=== PATIENT | male | born 1995 | race Caucasian/White ===

== ENCOUNTER 2021-07-30 12:54 | Emergency (ER) | payer OTHER ==
[2021-07-30 13:23] LABS: BASOPHILS # (AUTO) 0.1 10^3/uL (0.0-0.1); EOSINOPHILS # (AUTO) 0.1 10^3/uL (0.0-0.7); EOSINOPHILS % (AUTO) 1.1 %; HCT - HEMATOCRIT 46.2 % (42.0-52.0); HGB - HEMOGLOBIN 16.4 g/dL (14.0-18.0); LYMPHOCYTES # (AUTO) 1.7 10^3/uL (1.5-3.5); LYMPHOCYTES % (AUTO) 21.2 %; MEAN CORPUSCULAR HEMOGLOBIN 32.1 pg (27.0-31.0); MEAN CORPUSCULAR HGB CONC 35.5 g/dL (32.0-36.0); MEAN CORPUSCULAR VOLUME 90.4 fL (80.0-94.0); MEAN PLATELET VOLUME 9.5 fL (7.4-11.4); MONOCYTES # (AUTO) 0.5 10^3/uL (0.0-1.0); MONOCYTES % (AUTO) 6.6 %; NEUTROPHILS # (AUTO) 5.5 10^3/uL (1.5-6.6); PLT - PLATELET COUNT 280 10^3/uL (130-450); RED BLOOD COUNT 5.11 10^6/uL (4.70-6.10); RED CELL DISTRIBUTION WIDTH 11.2 % (12.0-15.0); WHITE BLOOD COUNT 7.9 x10^3/uL (4.8-10.8)
--- NOTE | 2021-07-30 13:35 | XRAY Report ---
PROCEDURE: Chest 1 View X-Ray INDICATIONS: Chest pain TECHNIQUE: One view of the chest was acquired. COMPARISON: None FINDINGS: Surgical changes and devices: None. Lungs and pleura: No pleural effusions or pneumothorax. Lungs are clear. Mediastinum: Mediastinal contours appear normal. Heart size is normal. Bones and chest wall: No suspicious bony lesions. Overlying soft tissues appear unremarkable. IMPRESSION: Normal examination. Reviewed by: Yin Lindsay MD, PhD on 07/30/2021 1:34 PM [facility] Approved by: Yin Lindsay MD, PhD on 07/30/2021 1:34 PM [facility] Station ID: [id number]
[2021-07-30 13:42] LABS: ALBUMIN 5.2 g/dL (3.2-5.5); ALBUMIN/GLOBULIN RATIO 1.5 (1.0-2.2); BILIRUBIN,TOTAL 0.8 mg/dL (0.2-1.0); CALCIUM 10.5 mg/dL (8.5-10.3); POTASSIUM 3.5 mmol/L (3.5-5.0); TOTAL PROTEIN 8.6 g/dL (6.7-8.2)
[2021-07-30 13:58] VITALS: BP 120/94
--- NOTE | 2021-07-30 14:12 | ED Physician Documentation ---
History of Present Illness - Stated complaint Stated Complaint: CHEST PX - Chief complaint Chief Complaint: Cardiac - History obtained from History obtained from: Patient - History of Present Illness Timing: How many weeks ago (several weeks) Pain level max: 3 Pain level now: 1 - Additonal information Additional information: 25 year old male With palpitations. This been ongoing for several weeks. Comes and goes. Lasts for few minutes at a time. Also complained of chest pain this morning. Substernal, nonradiating. Mildly lightheaded and short of breath. Is not on any medications at home. Nothing makes it better or worse. Currently asymptomatic. Review of Systems Constitutional: denies: Fever, Chills GI: denies: Vomiting, Diarrhea Skin: denies: Rash Musculoskeletal: denies: Neck pain, Back pain Neurologic: denies: Headache PD PAST MEDICAL HISTORY - Past Medical History Past Medical History: No - Past Surgical History Past Surgical History: No - Allergies Allergies/Adverse Reactions: Allergies Allergy/AdvReac Type Severity Reaction Status Date / Time amoxicillin Allergy Hives Verified 07/30/21 13:09 Penicillins Allergy Hives Verified 07/30/21 13:09 - Living Situation Living Situation: reports: With family Living Arrangement: reports: At home - Social History Does the pt have substance abuse?: No - Family History Family history: reports: Non contributory PD ED PE NORMAL - Vitals Vital signs reviewed: Yes - General General: Alert and oriented X 3, No acute distress - HEENT HEENT: PERRL, Moist mucous membranes - Neck Neck: Supple, no meningeal sign - Cardiac Cardiac: RRR, No murmur, Strong equal pulses - Respiratory Respiratory: No respiratory distress, Clear bilaterally - Abdomen Abdomen: Soft, Non tender, Non distended - Derm Derm: Warm and dry - Extremities Extremities: No edema, No calf tenderness / cord - Neuro Neuro: Alert and oriented X 3 - Psych Psych: Normal mood, Normal affect Results - Vitals Vitals: Vital Signs - 24 hr 07/30/21 07/30/21 07/30/21 13:03 13:56 14:17 Temperature 36.5 C Heart Rate 114 H 87 Respiratory 20 16 Rate Blood Pressure 181/101 H 120/94 H O2 Saturation 100 100 Oxygen O2 Source Room air - EKG (time done) 1307 Rate: Rate (enter#) (85) Rhythm: NSR (sinus arrhythmia), Other (PAC) [place]: Normal Intervals: Normal NM QRS: Normal Ischemia: Normal ST segments - Labs Labs: Laboratory Tests 07/30/21 07/30/21 07/30/21 13:17 13:17 13:17 WBC 7.9 RBC 5.11 Hgb 16.4 Hct 46.2 MCV 90.4 MCH 32.1 H MCHC 35.5 RDW 11.2 L Plt Count 280 MPV 9.5 Neut # (Auto) 5.5 Lymph # (Auto) 1.7 [place] # (Auto) 0.5 Eos # (Auto) 0.1 Baso # (Auto) 0.1 Absolute Nucleated RBC 0.00 Nucleated RBC % 0.0 Sodium 136 Potassium 3.5 Chloride 97 L Carbon Dioxide 28 Anion Gap 11.0 BUN 12 Creatinine 1.0 Estimated GFR (MDRD) 93 Glucose 91 Calcium 10.5 H Total Bilirubin 0.8 AST 20 ALT 45 Alkaline Phosphatase 55 Troponin I High Sens 2.5 Total Protein 8.6 H Albumin 5.2 Globulin 3.4 Albumin/Globulin Ratio 1.5 Lipase 37 - Rads (name of study) cxr Radiology: Final report received, EMP read contemporaneously, See rad report PD MEDICAL DECISION MAKING - ED course Complexity details: reviewed results, considered differential (No ST elevation DC, no aortic dissection, no PE, no tension pneumothorax, no aortic aneurysm), d/w patient ED course: 25-year-old male with palpitations and chest pain. Asymptomatic in the emergency department. Did have sinus arrhythmia and premature atrial contractions on EKG. No significant lab abnormalities. We will have him avoid stimulants and [place] to ensure no other arrhythmias. He will return if he worsens. Patient counseled regarding signs and symptoms for which I believe and urgent re-evaluation would be necessary. Patient with good understanding of and agreement to plan and is comfortable going home at this time This document was made in part using voice recognition software. While efforts are made to proofread this document, sound alike and grammatical errors may occur. Departure - Departure Disposition: 01 Home, Self Care Clinical Impression: Palpitations, Sinus arrhythmia, PAC (premature atrial contraction) Condition: Good Instructions: ED Palpitations Follow-Up: MYNOR VOGEL MD [Primary Care Provider] - Within 1 week Comments: They will likely want to put you on a Holter monitor to evaluate for any potential arrhythmias. You do have what is known as a sinus arrhythmia today and the occasional premature atrial contraction. These are not dangerous, but can cause the feeling of your heart skipping beats. Please decrease any stimulants/caffeine use. [place]
== END 2021-07-30 14:54 | disposition home or self-care (01) ==
LOC: ED 12:54
DX: I49.8 Other specified cardiac arrhythmias (principal); I49.1 Atrial premature depolarization; R00.2 Palpitations
CPT/HCPCS: 36415; 80053; 83690; 84484; 85025; 93005; 99283; 99284